=== PATIENT | female | born 1985 | race Caucasian/White ===

== ENCOUNTER 2021-05-13 14:27 | Emergency (ER) | payer BC, OTHER ==
[~2021-05-13] VITALS: Ht 157.5 cm; Wt 88.0 kg
[2021-05-13] MEDS ORDERED: IBUPROFEN 600MG TABLET PO STA (17:02)
[2021-05-13] MEDS ORDERED: IBUP-2029 PO (18:01)
[2021-05-13 18:40] VITALS: BP 125/64
== END 2021-05-13 18:42 | disposition home or self-care (01) ==
LOC: ER 14:27
DX: S93.491A Sprain of other ligament of right ankle, initial encounter (principal); X58.XXXA Exposure to other specified factors, initial encounter; Y93.89 Activity, other specified; Y92.89 Other specified places as the place of occurrence of the external cause; Y99.8 Other external cause status; F41.9 Anxiety disorder, unspecified
CPT/HCPCS: 73610; 81025; 99283